=== PATIENT | male | born 1985 | race Hispanic/Latino ===

== ENCOUNTER 2020-07-16 03:48 | Emergency (ER) | payer OTHER ==
[2020-07-16] MEDS ORDERED: LIDOCAINE HCL 2% VISCOUS 15 ML UDCUP ONE (04:30)
[2020-07-16] MEDS ORDERED: MAGNESIUM HYDROXIDE 30 ML/UDCUP ONE (04:30)
[2020-07-16] MEDS ORDERED: DEXAMETHASONE SOD PHOSPHATE 10MG/ML 1ML VIAL ONE (04:31)
== END 2020-07-16 04:45 | disposition home or self-care (01) ==
LOC: EDH 03:48
DX: K12.2 Cellulitis and abscess of mouth (principal)
CPT/HCPCS: 99283; J1100